=== PATIENT | female | born 1960 | race Caucasian/White ===

== ENCOUNTER 2022-03-08 03:33 | Emergency (ER) | payer OTHER ==
[~2022-03-08] VITALS: Ht 170.2 cm; Wt 100.0 kg
[~2022-03-08 03:33] MED LIST: LOSA-382 PO
[2022-03-08 03:37] VITALS: BP 185/89
[2022-03-08] MEDS ORDERED: METO-558 PO (03:44)
== END 2022-03-08 05:33 | disposition left against medical advice (07) ==
LOC: EMS 03:35
DX: Z53.21 Procedure and treatment not carried out due to patient leaving prior to being seen by health care provider (principal)
CPT/HCPCS: 93005